=== PATIENT | female | born 1940 | race Caucasian/White ===

== ENCOUNTER 2018-04-12 06:28 | Emergency (ER) | payer MEDICARE, OTHER, MEDICAID ==
[2018-04-12] MEDS: LIDOCAINE 2%/EPI MPF (SDV) 20 ML VIAL INJ (07:16)
[2018-04-12] MEDS: HYDROCODONE/APAP (10/325) TAB PO (07:51)
== END 2018-04-12 08:53 | disposition home or self-care (01) ==
LOC: E/R 06:28
DX: S01.81XA Laceration without foreign body of other part of head, initial encounter (principal); I10 Essential (primary) hypertension; W01.198A Fall on same level from slipping, tripping and stumbling with subsequent striking against other object, initial encounter; Y92.9 Unspecified place or not applicable
CPT/HCPCS: 12014; 70450; 72125; 73030; 99284-25